=== PATIENT | male | born 1965 | race Caucasian/White ===

== ENCOUNTER 2018-07-13 02:13 | Inpatient (IN) | payer OTHER ==
[~2018-07-13] VITALS: Ht 172.7 cm; Wt 80.5 kg
[2018-07-13 02:16] VITALS: Ht 172.7 cm; Wt 80.5 kg
[2018-07-13] MEDS ORDERED: CLINDAMYCIN 900 MG/D5W (PMX) 50 ML IVPB STA (02:47)
[2018-07-13] MEDS ORDERED: PIPER-TAZO 3.375 GM IV (PMX) 100 ML IVPB STA (02:47)
[2018-07-13] MEDS ORDERED: SODIUM CHLORIDE 0.9% 1L BAG IV* STA (02:47)
[2018-07-13] MEDS ORDERED: ACETAMINOPHEN 500 MG TAB PO STA (02:47)
[2018-07-13] MEDS ORDERED: VANCOMYCIN 1 GM (PMX) 250 ML IVPB STA (02:47)
--- NOTE | 2018-07-13 03:08 | ERD ---
ER Documentation Chief Complaint Chief Complaint RIGHT LEG; POSS CELLULITIS HPI 52-year-old male history of IV drug abuse who presents with injection site cellulitis of the right leg. The patient describes erythema warmth and tender ness and moderate to severe pain to the right leg with associated swelling for several days. Generalized malaise is noted. No significant fevers. ROS All systems reviewed and are negative except as per history of present illness. PMhx/Soc Medical and Surgical Hx: pt denies Medical Hx History of Surgery: Yes (R HIP SX) Anesthesia Reaction: No Hx Alcohol Use: No Hx Substance Use: Yes (HEROIN, METHADONE) Hx Tobacco Use: Yes Smoking Status: Current every day smoker FmHx Family History: No diabetes Physical Exam Vitals Vital Signs Date Temp Pulse Resp B/P (MAP) Pulse Ox O2 O2 Flow FiO2 Time Delivery Rate 07/13/18 97.6 91 18 129/79 96 Room Air 02:43 (96) 07/13/18 97.6 103 19 125/73 100 02:16 (90) Physical Exam General: Well developed, well nourished, no acute distress Head: Normocephalic, atraumatic. Eyes: Pupils equally reactive, EOM intact ENT: Moist mucous membranes Neck: Supple, no lymphadenopathy Respiratory: Lungs clear bilaterally, no distress Cardiovascular: RRR, no murmurs, rubs, or gallops Abdominal: Soft, non-tender, non-distended, no peritoneal signs : Deferred MSK: Significant edema swelling and acute on chronic wounds noted to the right leg. There is associated erythema warmth and tenderness with associated streaking erythema to the right lower extremity. No focal abscess noted. Neurologic: Alert and oriented, moving all extremities, normal speech, no focal weakness, no cerebellar signs Skin: No rash Psych: Normal mood Result Diagram: 07/13/18 0315 07/13/18 0315 Results 24 hrs Laboratory Tests Test 07/13/18 03:15 07/13/18 03:59 White Blood Count 4.3 10^3/ul Red Blood Count 4.34 10^6/ul Hemoglobin 12.1 g/dl Hematocrit 35.7 % Mean Corpuscular Volume 82.3 fl Mean Corpuscular Hemoglobin 27.9 pg Mean Corpuscular Hemoglobin Concent 33.9 g/dl Red Cell Distribution Width 13.7 % Platelet Count 173 10^3/UL Mean Platelet Volume 9.2 fl Immature Granulocytes % 0.200 % Neutrophils % 58.2 % Lymphocytes % 23.1 % Monocytes % 12.4 % Eosinophils % 5.6 % Basophils % 0.5 % Nucleated Red Blood Cells % 0.0 /100WBC Immature Granulocytes # 0.010 10^3/ul Neutrophils # 2.5 10^3/ul Lymphocytes # 1.0 10^3/ul Monocytes # 0.5 10^3/ul Eosinophils # 0.2 10^3/ul Basophils # 0.0 10^3/ul Nucleated Red Blood Cells # 0.0 10^3/ul Prothrombin Time 12.4 Sec Prothrombin Time Ratio 1.0 INR International Normalized Ratio 0.91 Activated Partial Thromboplast Time 31.8 Sec Sodium Level 141 mmol/L Potassium Level 3.5 mmol/L Chloride Level 100 mmol/L Carbon Dioxide Level 33 mmol/L Anion Gap 8 Blood Urea Nitrogen 11 mg/dl Creatinine 0.87 mg/dl Est Glomerular Filtrat Rate mL/min > 60 mL/min Glucose Level 142 mg/dl Calcium Level 9.2 mg/dl Creatine Kinase 97 IU/L C-Reactive Protein 2.1 mg/dl POC Venous Lactate 2.2 mmol/L Current Medications Medications Dose Sig/Evette Start Time Status Last (Trade) Ordered Route PRN Stop Time Admin Dose Reason Admin Sodium 2,390 ml BOLUS OVER 2 07/13/18 DC 07/13/18 Chloride HOURS STAT 02:47 03:40 (NS) IV* 07/13/18 02:50 Vancomycin 250 ml @ ONCE STAT 07/13/18 DC HCl 125 mls/hr IVPB 02:47 07/13/18 04:46 Clindamycin 50 ml @ 50 ONCE STAT 07/13/18 DC 07/13/18 HCl/ mls/hr IVPB 02:47 04:22 Dextrose 07/13/18 03:46 Piperacillin 100 ml @ ONCE STAT 07/13/18 DC 07/13/18 Sod/ 200 mls/hr IVPB 02:47 03:46 Tazobactam 07/13/18 03:16 Sod 1,000 mg ONCE STAT 07/13/18 DC 07/13/18 Acetaminophen PO 02:47 03:46 (Tylenol 07/13/18 02:50 Tab) Ondansetron 4 mg BRIDGE ORDER 07/13/18 HCl (Zofran PRN IV 04:30 Inj) NAUSEA AND/OR 07/14/18 04:29 VOMITING 650 mg ER BRIDGE 07/13/18 Acetaminophen PRN PO MILD 04:30 (Tylenol PAIN(1-3)OR 07/14/18 04:29 Tab) ELEVATED TEMP Procedures/MDM EKG, MONITORS, & DIAGNOSTIC IMAGING: Duplex of the right lower extremity: IMPRESSION: No sonographic evidence for deep venous thrombosis in the visualized lower extremity venous structures. RPTAT: HAP X-ray right lower extremity: IMPRESSION: No radiographic evidence for osteomyelitis. RPTAT: HAP LAB INTERPRETATION: * WBC slightly low * LA 2.2 * CRP elevated MEDICAL DECISION MAKING: Clinical exam consistent with cellulitis secondary to IV, IM drug abuse. No evidence of cellulitis or necrotizing fasciitis though the patient does have risk of more complicated infection. Given the localized cellulitis inpatient hospitalization appropriate. No evidence of abscess at this time that requires incision and drainage. Sepsis screening will be initiated. Broad-spectrum antibiotics to be provided. ER COURSE: * 30 cc/kg bolus of saline. Blood cultures prior to vancomycin, Zosyn, clindamycin. * Nonnarcotic pain medication provided. * The patient's lactic acid is elevated. The patient technically meets criteria for Sirs and sepsis. No evidence of severe sepsis or endorgan dysfunction. Blood pressure remained stable. CONSULTATION: None DISPOSITION PLAN: Medical surgical admission Accepting care team and consultations: I discussed the current laboratory data, diagnostic imaging and emergency care provided. Admitting team: Dr. Turpin sepsis Documentation: Patient's infectious symptoms have not stabilized and the patient is at risk of rapid decompensation. The patient will be admitted for careful hydration, antibiotic therapy, and infectious source control. SEVERE SEPSIS CRITERIA: Infectious source: Right leg cellulitis End organ damage indicated by: Lactate > 2.0 mmol/L SEPSIS MANAGEMENT Time of recognition of sepsis: Upon MD assessment. Time of recognition of severe sepsis: 3:59 AM Time of recognition of septic shock: No septic shock at this time. 3 HOUR BUNDLE Blood cultures x 2 before broad-spectrum antibiotics: Yes 30 ml/kg NS bolus completed Initial lactate 2.2 Repeat lactate pending repeat SEPTIC SHOCK ASSESSMENT: No lactic acid > 4.0 No persistent hypotension (SBP < 90 or 40 mmHg drop, MAP < 65) despite 30 mL/kg IV fluid bolus VOLUME REASSESSMENT FOR SEPTIC SHOCK: The patient does not meet criteria for septic shock in the emergency department at this time PERSISTENT HYPOTENSION TREATMENT: Comfort care no Central line not Required Vasopressor started not required I considered further perfusion assessment with CVP measurement, SCVO2, bedside ultrasound volume assessment, passive leg raise, trial of further fluid bolus. And proceeded with 30 ml/kg fluid bolus of NSS, broad spectrum antibiotics, and admission. CRITICAL CARE Critical care time 35 minutes Emergent fluid management while maintaining close respiratory support. Provision of immediate and broad-spectrum antibiotic therapy. Simultaneous assessment for possible sources in order to direct targeted therapy. Consideration for invasive and chemical support to prevent cardiopulmonary collapse. Critical care time is independent of procedures performed. Admitting team indication: Insurance directed Departure Diagnosis: Primary Impression: Cellulitis of leg, right Additional Impression: IV drug abuse Condition: Stable MELBA SENIOR MD Jul 13, 2018 03:08
[2018-07-13] MEDS ORDERED: ACETAMINOPHEN 325 MG TAB PO PRN (04:30)
[2018-07-13] MEDS ORDERED: ONDANSETRON 4 MG INJ IV PRN ×2 (04:30→06:30)
[2018-07-13 04:50] VITALS: BP 137/85; PULSE 79; RESP 17
--- NOTE | 2018-07-13 05:07 | NUR ---
received patient from ER. pt immediately went to the restroom upon arrival. unable to do the admission interview and assessments at this time. Addendum: 07/13/18 at 0551 by MIN FERNANDEZ RN skin assessment done with photo taken. inventory done, pt has a wallet with 100 dollar baez. explained hospital is not liable for any loss of valuables, offered to have the baez surrendered to security, patient wants to keep it. noted. Addendum: 07/13/18 at 0647 by MIN FERNANDEZ RN patient was oriented with the used of call light, phone and hourly rounding. verbalized understanding. pt complqained of heartburn, sent message to dr tapia, awaiting for additional orders.
[2018-07-13] MEDS ORDERED: NACL 0.9% 3 ML SYG IV SCH (06:30)
--- NOTE | 2018-07-13 06:32 | HP ---
Date/Time of Note Date/Time of Note DATE: 07/13/18 TIME: 06:29 Assessment/Plan VTE Prophylaxis Pharmacological prophylaxis: heparin Lines/Catheters IV Catheter Type (from Nrs): Mid Line Assessment/Plan Hospital Course 52-year-old male with history of IV drug abuse who presented with right lower extremity cellulitis secondary to injecting heroin on his calf 2 weeks ago PLAN IV antibiotic Wound care and ID consult He will be placed on methadone Result Diagram: 07/13/18 0315 07/13/18 0315 Results 24hrs Laboratory Tests Test 07/13/18 03:15 07/13/18 03:59 White Blood Count 4.3 L Red Blood Count 4.34 L Hemoglobin 12.1 L Hematocrit 35.7 L Mean Corpuscular Volume 82.3 Mean Corpuscular Hemoglobin 27.9 L Mean Corpuscular Hemoglobin Concent 33.9 Red Cell Distribution Width 13.7 Platelet Count 173 Mean Platelet Volume 9.2 Immature Granulocytes % 0.200 Neutrophils % 58.2 Lymphocytes % 23.1 Monocytes % 12.4 H Eosinophils % 5.6 Basophils % 0.5 Nucleated Red Blood Cells % 0.0 Immature Granulocytes # 0.010 Neutrophils # 2.5 Lymphocytes # 1.0 Monocytes # 0.5 Eosinophils # 0.2 Basophils # 0.0 Nucleated Red Blood Cells # 0.0 Erythrocyte Sedimentation Rate 15 Prothrombin Time 12.4 Prothrombin Time Ratio 1.0 INR International Normalized Ratio 0.91 Activated Partial Thromboplast Time 31.8 Sodium Level 141 Potassium Level 3.5 Chloride Level 100 Carbon Dioxide Level 33 H Anion Gap 8 Blood Urea Nitrogen 11 Creatinine 0.87 Est Glomerular Filtrat Rate mL/min > 60 Glucose Level 142 Calcium Level 9.2 Creatine Kinase 97 C-Reactive Protein 2.1 H POC Venous Lactate 2.2 *H HPI/ROS Admit Date/Time Admit Date/Time Jul 13, 2018 at 04:25 Hx of Present Illness This is a 52-year-old male with a history of IV drug use who presents the ER complaining of right lower extremity redness and swelling. He said he has been shooting heroin in that leg and for the past 2 weeks leg has been progressively getting more swollen and erythematous and tender. When he presented to ER, he was afebrile. WBC 4000. Right lower extremity x-ray and venous study were negative. PMH/Family/Social Past Medical History Medical History: other (See HPI) Medications Current Medications Ondansetron HCl (Zofran Inj) 4 mg BRIDGE ORDER PRN IV NAUSEA AND/OR VOMITING; Start 07/13/18 at 04:30; Stop 07/14/18 at 04:29 Acetaminophen (Tylenol Tab) 650 mg ER BRIDGE PRN PO MILD PAIN(1-3)OR ELEVATED TEMP; Start 07/13/18 at 04:30; Stop 07/14/18 at 04:29 IV Flush (NS 3 ml) 3 ml PER PROTOCOL IV ; Start 07/13/18 at 06:30 Ondansetron HCl (Zofran Inj) 4 mg Q6H PRN IV NAUSEA AND/OR VOMITING; Start 07/13/18 at 06:30 Acetaminophen (Tylenol Tab) 650 mg Q6H PRN PO PAIN LEVEL 1-3 OR FEVER; Start 07/13/18 at 06:30 Heparin Sodium (Porcine) (Heparin (5000 Units/1ml)) 5,000 unit Q12 SC ; Start 07/13/18 at 09:00 Methadone HCl (Methadone) 20 mg DAILY PO ; Start 07/13/18 at 09:00 Vancomycin HCl (Vanco Iv Per Pharmacy) VANCOMYCIN PER PHARMACY PER PROTOCOL XX ; Start 07/13/18 at 07:00 Cefepime HCl 50 ml @ 100 mls/hr Q12 IVPB ; Start 07/13/18 at 09:00 Coded Allergies: No Known Allergies (Verified Allergy, Unknown, 07/13/18) Past Surgical History Past Surgical Hx: other (See HPI) Family History Significant Family History: no pertinent family hx Social History Smoking Status: Current every day smoker Drug Use: heroin Exam/Review of Systems Vital Signs Vitals Vital Signs Date Temp Pulse Resp B/P (MAP) Pulse Ox O2 O2 Flow FiO2 Time Delivery Rate 07/13/18 97.6 87 18 119/70 96 Room Air 04:53 (86) Exam Constitutional: alert, oriented, well developed Head: normocephalic, atraumatic Eyes: EOMI, PERRL Respiratory: clear to auscultation, normal air movement Cardiovascular: regular rate and rhythm, nl pulses Gastrointestinal: soft, non-tender Extremities: other (Right calF swelling and erythema) NEO JOHNSON MD Jul 13, 2018 06:32
[2018-07-13] MEDS ORDERED: VANCOMYCIN IV PER PHARMACY XX SCH (07:00)
[2018-07-13 08:26] VITALS: BP 112/75; PULSE 71; RESP 17
[2018-07-13] MEDS ORDERED: METHADONE 10 MG TAB PO SCH (09:00)
[2018-07-13] MEDS: CEFEPIME 1GM/50 ML (PMX) 50 ML IVPB SCH ×2 (09:43→21:34)
[2018-07-13] MEDS: HEPARIN 5,000 UNIT/1 ML VIAL SC SCH ×2 (09:46→21:37)
--- NOTE | 2018-07-13 11:19 | NUR ---
VANCOMYCIN PER RX Problem List: RLE cellulitis, H/O IV drug abuse Current ABXs: Cefepime, Vancomycin 52 yom 5ft8in, 80.5 kg with SCr of 0.87. Comments/Plan: Received 1 gram of Vancomycin x 1 dose as load in ED. Will initiate at 1500 mg IV every 12 hour.
[2018-07-13] MEDS: VANCOMYCIN HCL 1.5 GM in SOD CHLORIDE 0.9% 250 ML IVPB SCH (13:48)
[2018-07-13] MEDS: CALCIUM CARBONATE 500 MG CHEW TAB PO SCH ×2 (13:48→18:05)
[2018-07-13 15:32] VITALS: BP 115/84; PULSE 65; RESP 17
[2018-07-13] MEDS ORDERED: METHADONE 10 MG TAB PO ONE (16:00)
--- NOTE | 2018-07-13 16:14 | NUR ---
SS Note: Consult SW received order to meet with pt regarding heroin abuse. The patient is a 52-year-old male with history of IV drug abuse who presented with right lower extremity cellulitis secondary to injecting heroin, per record. SW met with pt to complete psychosocial assessment and link pt to appropriate resources as needed. Pt awake, alert, and oriented x4. Pt calm and cooperative with SW. Pt reported feeling "well" asking for more methadone. Per pt, he takes 50mg of methadone daily and was given 20mg here. Pt reported actively using smoking or injecting heroin 3x/week. Pt stated he f/u at [facility] for his methadone. Pt denied past hx of substance abuse/rehab tx. Pt denied other illicit drug and etoh use. Pt reported he is single and has no children. Pt confirmed address on facesheet and stated he lives with his brother and sister. Pt verbally appointed his brother, Arnol Cowan , as surrogate decision maker/spokesperson. Pt stated he is unemployed and is a recipient of [employer]. Pt has [facility] [place] insurance and stated he has a PCP. Normally pt is independent with all ADL's and does not require DME to ambulate. SW introduced self and the role of the social human services assistants. SW provided supportive intervention and reassurance. SW advised quitting heroine, encouraged pt to get help, and provided outpatient/residential tx resources. Pt was provided with heroin abuse e-sheets for additional education regarding heroin addiction and tx. Pt receptive to resources. RN getting order from attending for 30mg of methadone. No other needs identified at this time. SW remains available for f/u as needed.
--- NOTE | 2018-07-13 17:53 | PN ---
Date/Time of Note Date/Time of Note DATE: 07/13/18 TIME: 17:52 Assessment/Plan VTE Prophylaxis Risk score (from Ns)>0 risk: 3 SCD applied (from Ns): Yes Pharmacological prophylaxis: heparin Lines/Catheters IV [facility] Mid Line Assessment/Plan Hospital Course SUBJECTIVE: Remains afebrile. OBJECTIVE: Physical Exam General: Adequately build 52 year-old male lying in bed in no apparent distress. HEENT: Normocephalic, atraumatic. Eyes: Anicteric sclerae, conjunctivae clear. ENT: Nasal septum midline, oral mucosa moist. Neck supple, no JVD noticed. Respiratory: Bilaterally clear breath sounds. No use of accessory muscles of respiration. No adventitious breath sounds. Cardiovascular: S1, S2 heard. Regular rate and rhythm. Abdomen: Soft, nontender, and nondistended. Bowel sounds positive in all 4 quadrants. Genitourinary: Deferred. Extremities: No cyanosis, no clubbing. Right pedal edema. Right lower extremity erythema and edema with warmth (needle tracks noted). Neurologic: Cranial nerves II through XII grossly intact. The patient is awake, alert, and oriented. Labs & Vitals per chart ASSESSMENT & PLAN 52-year-old male with history of IV drug use, who came to the emergency room with chief complaint of right lower extremity redness and swelling that started after injecting heroin into his right lower extremity. 1. Right lower extremity cellulitis. -Right lower extremity venous Doppler study negative for any DVT. -Right lower extremity x-ray negative for any osteomyelitis. -Continue antimicrobials including coverage for MRSA. 2. Normocytic anemia. -Monitor H&H closely. 3. IV drug abuse. -Cessation advised. -Social work consult. -On methadone. 4. Fluids, electrolytes, and nutrition. -Regular diet. 5. DVT prophylaxis. -Subcutaneous heparin. 6. Plan. -Continue antimicrobials -Await clinical improvement. The patient was seen in collaboration with Dr. Llamas. Result Diagram: 07/13/1831407/13/18314 Results 24hrs Laboratory Tests Test 07/13/18 03:15 07/13/18 03:59 07/13/18 05:27 07/13/18 11:49 White Blood Count 4.3 L Red Blood Count 4.34 L Hemoglobin 12.1 L Hematocrit 35.7 L Mean Corpuscular 82.3 Volume Mean Corpuscular 27.9 L Hemoglobin Mean Corpuscular 33.9 Hemoglobin Concent Red Cell 13.7 Distribution Width Platelet Count 173 Mean Platelet Volume 9.2 Immature 0.200 Granulocytes % Neutrophils % 58.2 Lymphocytes % 23.1 Monocytes % 12.4 H Eosinophils % 5.6 Basophils % 0.5 Nucleated Red Blood 0.0 Cells % Immature 0.010 Granulocytes # Neutrophils # 2.5 Lymphocytes # 1.0 Monocytes # 0.5 Eosinophils # 0.2 Basophils # 0.0 Nucleated Red Blood 0.0 Cells # Erythrocyte 15 Sedimentation Rate Prothrombin Time 12.4 Prothrombin Time 1.0 Ratio INR International 0.91 Normalized Ratio Activated 31.8 Partial Thromboplast Time Sodium Level 141 Potassium Level 3.5 Chloride Level 100 Carbon Dioxide Level 33 H Anion Gap 8 Blood Urea Nitrogen 11 Creatinine 0.87 Est Glomerular > 60 Filtrat Rate mL/min Glucose Level 142 Calcium Level 9.2 Creatine Kinase 97 C-Reactive Protein 2.1 H POC Venous Lactate 2.2 *H Lactic Acid Level 1.6 Urine Color YELLOW Urine Clarity CLEAR Urine pH 7.0 Urine Specific 1.010 [place] Urine Ketones NEGATIVE Urine Nitrite NEGATIVE Urine Bilirubin NEGATIVE Urine Urobilinogen 1+ H Urine Leukocyte NEGATIVE Esterase Urine Hemoglobin NEGATIVE Urine Glucose NEGATIVE Urine Total Protein NEGATIVE Exam/Review of Systems Vital Signs Vitals Vital Signs Date Temp Pulse Resp B/P (MAP) Pulse Ox O2 O2 Flow FiO2 Time Delivery Rate 07/13/18 98.0 65 17 115/84 98 Room Air 15:32 (94) Intake and Output 07/12/18 07/12/18 07/13/18 1515:00 23:00 07:00 IntakeIntake Total 50 ml BalanceBalance 50 ml Medications Medications Current Medications IV Flush (NS 3 ml) 3 ml PER PROTOCOL IV ; Start 07/13/18 at 06:30 Ondansetron HCl (Zofran Inj) 4 mg Q6H PRN IV NAUSEA AND/OR VOMITING; Start 07/13/18 at 06:30 Acetaminophen (Tylenol Tab) 650 mg Q6H PRN PO PAIN LEVEL 1-3 OR FEVER; Start 07/13/18 at 06:30 Heparin Sodium (Porcine) (Heparin (5000 Units/1ml)) 5,000 unit Q12 SC Last administered on 07/13/18at 09:46; Admin Dose 5,000 UNIT; Start 07/13/18 at 09:00 Vancomycin HCl (Vanco Iv Per Pharmacy) VANCOMYCIN PER PHARMACY PER PROTOCOL XX ; Start 07/13/18 at 07:00 Cefepime HCl 50 ml @ 100 mls/hr Q12 IVPB Last administered on 07/13/18at 09:43; Admin Dose 100 MLS/HR; Start 07/13/18 at 09:00 Vancomycin HCl 1.5 gm/Sodium Chloride 250 ml @ 83.333 mls/ hr Q12H IVPB Last administered on 07/13/18at 13:48; Admin Dose 83.333 MLS/HR; Start 07/13/18 at 13:00 Calcium Carbonate (Tums) 500 mg PC MEALS PO Last administered on 07/13/18at 13:48; Admin Dose 500 MG; Start 07/13/18 at 13:00 Methadone HCl (Methadone) 50 mg DAILY PO ; Start 07/14/18 at 09:00 ESTEPHANIA VALENCIA NP Jul 13, 2018 17:53
--- NOTE | 2018-07-13 19:56 | CONS ---
DATE OF ADMISSION: 07/13/2018 DATE OF CONSULTATION: 07/13/2018 TYPE OF CONSULTATION: Infectious Disease. REASON FOR CONSULTATION: Antibiotic management. HISTORY OF PRESENT ILLNESS: Erick Cowan is a 52-year-old male who comes in with history of IV chandana g abuse and right leg cellulitis. He presents with injection site cellulitis of the right leg. The area is red, warm and tender, moderate to severe pain with associated swelling of several days, gener al malaise is noted. No significant fever. PAST SURGICAL HISTORY: Status post right hip surgery. FAMILY HISTORY: Noncontributory. SOCIAL HISTORY: He abuses substances such as heroin and methadone. He is an everyday smoker. He do es not drink. ALLERGIES: NONE TO PENICILLIN, SULFA OR FOODS. MEDICATIONS: Per chart. REVIEW OF SYSTEMS: As per HPI. PHYSICAL EXAMINATION: GENERAL: The patient is a well-developed, well-nourished male who is awake, responsive, in no acute distress. VITAL SIGNS: Stable. He is afebrile. SKIN: Without generalized rash. HEENT: Within normal limits. NECK: Supple. LYMPH NODES: None palpable. CHEST: Decreased breath sounds at the bases. HEART: Without murmur or gallop. ABDOMEN: Soft, nontender, without organosplenomegaly or masses. EXTREMITIES: Significant edema and swelling. Acute on chronic wounds noted to the right leg associa tracy with erythema, warmth and tenderness. There is some streaking up from the right lower extremity, no focal abscesses were noted. RECTAL AND GENITAL: Deferred. NEUROLOGIC: No focal neurological abnormality. ANCILLARY LABORATORY DATA: White count of 4.3, H and H of 12.5 and 35.7, platelet count 173,000. BU N and creatinine 11/0.87. IMPRESSION AND PLAN: The patient has 58% polys, was started on vancomycin, clindamycin and Zosyn to cover cellulitis and gas gangrene if present. X-ray of right lower extremity shows no evidence for o steomyelitis. Clinical exam is consistent with cellulitis secondary to IV drug abuse. No evidence f or necrotizing fasciitis. No evidence of abscess at this time. We will continue him on current ther apy for right lower extremity cellulitis. I will dictate my findings to the hospitalist. Dictated By: MANDEEP OWENS MD, JD/MARLENE Conf#: [id number] DID#: [id number] CC: NEO JOHNSON MD;*[facility]*
[2018-07-13 20:17] VITALS: BP 141/77; PULSE 79; RESP 18
[2018-07-14] MEDS: VANCOMYCIN HCL 1.5 GM in SOD CHLORIDE 0.9% 250 ML IVPB SCH ×2 (01:44→12:59)
[2018-07-14 02:12] VITALS: BP 113/63; PULSE 85; RESP 20
--- NOTE | 2018-07-14 05:43 | PN ---
Date/Time of Note Date/Time of Note DATE: 07/14/18 TIME: 05:43 Assessment/Plan VTE Prophylaxis Risk score (from Ns)>0 risk: 2 SCD applied (from Ns): Yes Pharmacological prophylaxis: heparin Lines/Catheters IV Catheter Type (from [facility] Mid Line Assessment/Plan Hospital Course SUBJECTIVE: Remains afebrile. OBJECTIVE: Physical Exam General: Adequately build 52 year-old male lying in bed in no apparent distress. HEENT: Normocephalic, atraumatic. Eyes: Anicteric sclerae, conjunctivae clear. ENT: Nasal septum midline, oral mucosa moist. Neck supple, no JVD noticed. Respiratory: Bilaterally clear breath sounds. No use of accessory muscles of respiration. No adventitious breath sounds. Cardiovascular: S1, S2 heard. Regular rate and rhythm. Abdomen: Soft, nontender, and nondistended. Bowel sounds positive in all 4 quadrants. Genitourinary: Deferred. Extremities: No cyanosis, no clubbing. Right pedal edema. Right lower extremity erythema and edema with warmth (needle tracks noted). Neurologic: Cranial nerves II through XII grossly intact. The patient is awake, alert, and oriented. Labs & Vitals per chart ASSESSMENT & PLAN 52-year-old male with history of IV drug use, who came to the emergency room with chief complaint of right lower extremity redness and swelling that started after injecting heroin into his right lower extremity. 1. Right lower extremity cellulitis. -Right lower extremity venous Doppler study negative for any DVT. -Right lower extremity x-ray negative for any osteomyelitis. -Continue antimicrobials including coverage for MRSA as per ID. 2. Normocytic anemia. -Monitor H&H closely. 3. IV drug abuse. -Cessation advised. -Social work consult. -On methadone. 4. Fluids, electrolytes, and nutrition. -Regular diet. 5. DVT prophylaxis. -Subcutaneous heparin. 6. Plan. -Continue antimicrobials -Await clinical improvement. The patient was seen in collaboration with Dr. Llamas. Result Diagram: 07/13/185 07/13/18 0315 Results 24hrs Laboratory Tests Test 07/13/18 11:49 Urine Color YELLOW Urine Clarity CLEAR Urine pH 7.0 Urine Specific [place] 1.010 Urine Ketones NEGATIVE Urine Nitrite NEGATIVE Urine Bilirubin NEGATIVE Urine Urobilinogen 1+ H Urine Leukocyte Esterase NEGATIVE Urine Hemoglobin NEGATIVE Urine Glucose NEGATIVE Urine Total Protein NEGATIVE Exam/Review of Systems Vital Signs Vitals Vital Signs Date Temp Pulse Resp B/P (MAP) Pulse Ox O2 O2 Flow FiO2 Time Delivery Rate 07/14/18 98.3 85 20 113/63 98 02:12 (80) 07/13/18 Room Air 20:17 Intake and Output 07/13/18 07/13/18 07/14/18 1515:00 23:00 07:00 IntakeIntake Total 300 ml 800 ml 1500 ml OutputOutput Total 375 ml 475 ml 500 ml BalanceBalance -75 ml 325 ml 1000 ml Medications Medications Current Medications IV Flush (NS 3 ml) 3 ml PER PROTOCOL IV ; Start 07/13/18 at 06:30 Ondansetron HCl (Zofran Inj) 4 mg Q6H PRN IV NAUSEA AND/OR VOMITING; Start 07/13/18 at 06:30 Acetaminophen (Tylenol Tab) 650 mg Q6H PRN PO PAIN LEVEL 1-3 OR FEVER; Start 07/13/18 at 06:30 Heparin Sodium (Porcine) (Heparin (5000 Units/1ml)) 5,000 unit Q12 SC Last administered on 07/13/18at 21:37; Admin Dose 5,000 UNIT; Start 07/13/18 at 09:00 Vancomycin HCl (Vanco Iv Per Pharmacy) VANCOMYCIN PER PHARMACY PER PROTOCOL XX ; Start 07/13/18 at 07:00 Cefepime HCl 50 ml @ 100 mls/hr Q12 IVPB Last administered on 07/13/18at 21:34; Admin Dose 100 MLS/HR; Start 07/13/18 at 09:00 Vancomycin HCl 1.5 gm/Sodium Chloride 250 ml @ 83.333 mls/ hr Q12H IVPB Last administered on 07/14/18at 01:44; Admin Dose 83.333 MLS/HR; Start 07/13/18 at 13:00 Calcium Carbonate (Tums) 500 mg PC MEALS PO Last administered on 07/13/18at 18:05; Admin Dose 500 MG; Start 07/13/18 at 13:00 Methadone HCl (Methadone) 50 mg DAILY PO ; Start 07/14/18 at 09:00 ESTEPHANIA VALENCIA NP Jul 14, 2018 05:43
--- NOTE | 2018-07-14 06:56 | NUR ---
no acute changes overnight, patient remained afebrile with VSS. able to sleep through the night. denied pain when asked. fall precautions observed with hourly rounding done. needs attended to and anticipated, call light within reach.
[2018-07-14 08:30] VITALS: BP 122/74; PULSE 80; RESP 18
[2018-07-14] MEDS: METHADONE 10 MG TAB PO SCH (08:37)
[2018-07-14] MEDS: CALCIUM CARBONATE 500 MG CHEW TAB PO SCH ×3 (08:38→18:18)
[2018-07-14] MEDS: CEFEPIME 1GM/50 ML (PMX) 50 ML IVPB SCH (08:38)
[2018-07-14] MEDS: HEPARIN 5,000 UNIT/1 ML VIAL SC SCH ×2 (08:41→20:25)
[2018-07-14] MEDS: ACETAMINOPHEN 325 MG TAB PO PRN ×2 (12:58→20:22)
[2018-07-14 14:00] VITALS: BP 118/62; PULSE 76; RESP 18
--- NOTE | 2018-07-14 15:02 | CONS ---
Assessment/Plan Assessment/Plan Hospital Course No events overnight patient is alert feels good denies pain no fevers WBC 6.2 no shift no bands BUN 9 creatinine 0.95 Microbiology: Blood and urine cultures negative Antimicrobials: Vancomycin cefepime Physical examination: Well-developed middle-aged man who is alert in no distress. Head atraumatic normocephalic neck is supple chest rise symmetrical breath sounds clear heart: S1-S2. Abdomen soft bowel sounds present. Extremities without cyanosis. Right foot slightly edematous with resolving erythema Assessment: 1. Right foot cellulitis, resolving 2. IV drug abuse Plan: Patient is doing better, change cefepime to oral Levaquin, continue Vanco and anticipate discharge on oral Bactrim or doxycycline Result Diagram: 07/14/18 0630 07/14/18 0630 Results 24hrs Laboratory Tests Test 07/14/18 06:30 White Blood Count 6.2 # Red Blood Count 4.95 Hemoglobin 13.8 L Hematocrit 40.3 L Mean Corpuscular Volume 81.4 L Mean Corpuscular Hemoglobin 27.9 L Mean Corpuscular Hemoglobin Concent 34.2 Red Cell Distribution Width 13.3 Platelet Count 189 Mean Platelet Volume 9.6 Immature Granulocytes % 0.200 Neutrophils % 57.7 Lymphocytes % 25.4 Monocytes % 12.4 H Eosinophils % 4.0 Basophils % 0.3 Nucleated Red Blood Cells % 0.0 Immature Granulocytes # 0.010 Neutrophils # 3.6 Lymphocytes # 1.6 Monocytes # 0.8 Eosinophils # 0.3 Basophils # 0.0 Nucleated Red Blood Cells # 0.0 Sodium Level 138 Potassium Level 3.7 Chloride Level 102 Carbon Dioxide Level 27 Anion Gap 9 Blood Urea Nitrogen 9 Creatinine 0.95 Est Glomerular Filtrat Rate mL/min > 60 Glucose Level 87 # Hemoglobin A1c 5.0 Calcium Level 9.4 Phosphorus Level 3.6 Magnesium Level 2.0 Total Bilirubin 0.4 Direct Bilirubin 0.00 Indirect Bilirubin 0.4 Aspartate Amino Transf (AST/SGOT) 32 Alanine Aminotransferase (ALT/SGPT) 32 Alkaline Phosphatase 100 Total Protein 7.4 Albumin 4.1 Globulin 3.30 H Albumin/Globulin Ratio 1.24 Triglycerides Level 113 Cholesterol Level 158 LDL Cholesterol, Calculated 87 HDL Cholesterol 48 Cholesterol/HDL Ratio 3.2 Prostate Specific Antigen 0.5 Consultation Date/Type/Reason Admit Date/Time Jul 13, 2018 at 04:25 Initial Consult Date Type of Consult id Exam/Review of Systems Vital Signs Vitals Vital Signs Date Temp Pulse Resp B/P (MAP) Pulse Ox O2 O2 Flow FiO2 Time Delivery Rate 07/14/18 98.6 80 18 122/74 96 08:30 (90) 07/13/18 Room Air 20:17 Intake and Output 07/13/18 07/13/18 07/14/18 1515:00 23:00 07:00 IntakeIntake Total 300 ml 800 ml 1750 ml OutputOutput Total 375 ml 475 ml 500 ml BalanceBalance -75 ml 325 ml 1250 ml Medications Medications Current Medications IV Flush (NS 3 ml) 3 ml PER PROTOCOL IV ; Start 07/13/18 at 06:30 Ondansetron HCl (Zofran Inj) 4 mg Q6H PRN IV NAUSEA AND/OR VOMITING; Start 06/24 07/11 at 06:30 Acetaminophen (Tylenol Tab) 650 mg Q6H PRN PO PAIN LEVEL 1-3 OR FEVER Last administered on 07/14/18at 12:58; Admin Dose 650 MG; Start 07/13/18 at 06:30 Heparin Sodium (Porcine) (Heparin (5000 Units/1ml)) 5,000 unit Q12 SC Last administered on 07/14/18at 08:41; Admin Dose 5,000 UNIT; Start 07/13/18 at 09:00 Vancomycin HCl (Vanco Iv Per Pharmacy) VANCOMYCIN PER PHARMACY PER PROTOCOL XX ; Start 07/13/18 at 07:00 Cefepime HCl 50 ml @ 100 mls/hr Q12 IVPB Last administered on 07/14/18at 08:38; Admin Dose 100 MLS/HR; Start 07/13/18 at 09:00 Vancomycin HCl 1.5 gm/Sodium Chloride 250 ml @ 83.333 mls/ hr Q12H IVPB Last administered on 07/14/18at 12:59; Admin Dose 83.333 MLS/HR; Start 07/13/18 at 13:00 Calcium Carbonate (Tums) 500 mg PC MEALS PO Last administered on 07/14/18at 12:58; Admin Dose 500 MG; Start 07/13/18 at 13:00 Methadone HCl (Methadone) 50 mg DAILY PO Last administered on 07/14/18at 08:37; Admin Dose 50 MG; Start 07/14/18 at 09:00 Miscellaneous Information (*Rx Drug Level Order Reminder*) 1 ONCE ONCE XX ; Start 07/15/18 at 00:00; Stop 07/15/18 at 00:01 Date/Time of Note Date/Time of Note DATE: 07/14/18 TIME: 15:02 HIRAM TRIANA NP Jul 14, 2018 15:02
--- NOTE | 2018-07-14 18:57 | NUR ---
All needs met.no acute events.gave pain medication as reqested.call light within reach.bed alarm on.he is resting comfortably in bed.
[2018-07-14 19:50] VITALS: BP 130/75; PULSE 83; RESP 20
[2018-07-15] MEDS: VANCOMYCIN HCL 1.5 GM in SOD CHLORIDE 0.9% 250 ML IVPB SCH ×2 (00:59→13:45)
[2018-07-15 01:33] VITALS: BP 139/74; PULSE 70; RESP 18
--- NOTE | 2018-07-15 03:22 | NUR ---
VANCOMYCIN PER PHARMACY Problem List: RLE cellulitis, H/O IV drug abuse VANCO TROUGH = 15.4 CONTINUE WITH SAME THERAPY VANCO 1.5 GM Q12HRS Pharmacy to follow.
[2018-07-15] MEDS ORDERED: LEVOFLOXACIN 500 MG TAB ONE (04:05)
[2018-07-15] MEDS ORDERED: LEVOFLOXACIN 500 MG TAB PO SCH (06:00)
--- NOTE | 2018-07-15 06:16 | NUR ---
VS stable and pt afebrile. Pt c/o pain and medicated with PRN Tylenol. Midline patent. No acute changes or s/s of respiratory distress throughout shift. SCDs on and off on L leg. Hourly rounding provided. Bed at the lowest position with call light within reach. Will endorse to oncoming nurse.
[2018-07-15 07:30] VITALS: BP 123/63; PULSE 54; RESP 17
--- NOTE | 2018-07-15 08:29 | PN ---
Assessment/Plan VTE Prophylaxis Risk score (from Ns)>0 risk: 2 Assessment/Plan Result Diagram: 07/14/18 0630 07/14/18 0630 Results 24hrs Exam/Review of Systems Vital Signs Vitals Vital Signs Date Temp Pulse Resp B/P (MAP) Pulse Ox O2 O2 Flow FiO2 Time Delivery Rate 07/15/18 98.5 54 17 123/63 98 Room Air 07:30 (83) Intake and Output 07/14/18 07/14/18 07/15/18 1515:00 23:00 07:00 IntakeIntake Total 400 ml 730 ml 550 ml OutputOutput Total 200 ml 300 ml 600 ml BalanceBalance 200 ml 430 ml -50 ml Medications Medications Current Medications IV Flush (NS 3 ml) 3 ml PER PROTOCOL IV ; Start 07/13/18 at 06:30 Ondansetron HCl (Zofran Inj) 4 mg Q6H PRN IV NAUSEA AND/OR VOMITING; Start 07/13/18 at 06:30 Acetaminophen (Tylenol Tab) 650 mg Q6H PRN PO PAIN LEVEL 1-3 OR FEVER Last administered on 07/14/18at 20:22; Admin Dose 650 MG; Start 07/13/18 at 06:30 Heparin Sodium (Porcine) (Heparin (5000 Units/1ml)) 5,000 unit Q12 SC Last administered on 07/14/18at 20:25; Admin Dose 5,000 UNIT; Start 07/13/18 at 09:00 Vancomycin HCl (Vanco Iv Per Pharmacy) VANCOMYCIN PER PHARMACY PER PROTOCOL XX ; Start 07/13/18 at 07:00 Vancomycin HCl 1.5 gm/Sodium Chloride 250 ml @ 83.333 mls/ hr Q12H IVPB Last administered on 07/15/18at 00:59; Admin Dose 83.333 MLS/HR; Start 07/13/18 at 13:00 Calcium Carbonate (Tums) 500 mg PC MEALS PO Last administered on 07/14/18 18:18; Admin Dose 500 MG; Start 07/13/18 at 13:00 Methadone HCl (Methadone) 50 mg DAILY PO Last administered on 07/14/18 08:37; Admin Dose 50 MG; Start 07/14/18 at 09:00 Levofloxacin (Levaquin) 500 mg DAILY@06 PO Last administered on 07/15/18 05:27; Admin Dose 500 MG; Start 07/15/18 at 06:00 ESTEPHANIA VALENCIA NP Jul 15, 2018 08:29
[2018-07-15] MEDS: CALCIUM CARBONATE 500 MG CHEW TAB PO SCH ×2 (09:36→13:45)
[2018-07-15] MEDS: METHADONE 10 MG TAB PO SCH (09:36)
[2018-07-15] MEDS: HEPARIN 5,000 UNIT/1 ML VIAL SC SCH (09:37)
[2018-07-15] MEDS ORDERED: SULF1TAB31 PO (12:32)
--- NOTE | 2018-07-15 12:34 | PDOCDIS ---
Discharge Instructions CONDITION [id number] Patient Condition: [id number] Stable HOME CARE INSTRUCTIONS: [id number] Diet Instructions: [id number] Regular OTHER ORDERS: Other Orders: 1. Complete the course of antimicrobials. 2. Avoid using IV drugs. 3. Elevate right lower extremity while resting. 4. Take a regular diet as tolerated. 5. Resume activities as tolerated. 6. Please go to the nearest emergency room if you have worsening right lower extremity swelling, redness, persistent fevers, or any other unusual signs/symptoms. ESTEPHANIA VALENCIA NP Jul 15, 2018 12:34
--- NOTE | 2018-07-15 12:38 | DS ---
Date/Time of Note Date/Time of Note DATE: 07/15/18 TIME: 12:36 Discharge Summary Admission/Discharge Info Admit Date/Time Jul 13, 2018 at 04:25 Discharge Date/Time Discharge Diagnosis 1. Right lower extremity cellulitis. 2. Normocytic anemia. 3. IV drug abuse. Patient Condition: Stable Consults 1. Arya Thomason MD, Infectious Diseases. Procedures Right Lower Extremity Venous Doppler Study IMPRESSION: No sonographic evidence for deep venous thrombosis in the visualized lower extremity venous structures. X-Ray of Right Tibia and Fibula IMPRESSION: No radiographic evidence for osteomyelitis. Hx of Present Illness This is a 52-year-old male with history of IV drug use, who came to the emergency room with chief complaint of right lower extremity redness and swelling that started after injecting heroin into his right lower extremity. Hospital Course The patient was admitted to inpatient setting. The patient underwent a right lower extremity venous Doppler study that was negative for any DVT. The patient also underwent a right tibia/fibula X-ray that was negative for any radiographic evidence of osteomyelitis. The patient was on antimicrobials. Patient's cultures remained negative. The patient's cellulitis responded well to antimicrobial therapy. Patient is clinically stable to be discharged home on oral antibiotics. However, the patient needs to abstain from using IV heroine. The patient was evaluated by social worker psychiatric. The patient was maintained on methadone at the same dose as he was getting as outpatient. Patient was also complaining of some urinary hesitancy. The patient's urine studies including urine culture was negative. The patient's PSA was within normal limits. The patient had a stable hospital course. The patient is stable to be discharged h ome. Discharge Instructions 1. Complete the course of antimicrobials. 2. Avoid using IV drugs. 3. Elevate right lower extremity while resting. 4. Take a regular diet as tolerated. 5. Resume activities as tolerated. 6. Please go to the nearest emergency room if you have worsening right lower extremity swelling, redness, persistent fevers, or any other unusual signs/symptoms. The patient verbalized understanding of his discharge instructions. At this time I would like to thank all the consultants for seeing the patient and providing clinical recommendations. The patient was seen in collaboration with Dr. Llamas. Home Meds Active Scripts Sulfamethoxazole/Trimethoprim* (Bactrim Ds* Tablet) 1 Each Tablet, 1 TAB PO BID for 7 Days, #14 TAB Prov:ESTEPHANIA VALENCIA NP 07/15/18 Follow-up Plan The patient to follow-up with his primary care physician. Primary Care Provider [facility] Time spent on discharge: > 30 minutes Pending Labs Laboratory Tests Test 07/14/18 14:18 07/15/18 00:10 Iron Level 76 ug/dl (35-150) Total Iron Binding Capacity 348 ug/dl (241-421) Percent Iron Saturation 22 % SAT (22-52) Ferritin 37.8 ng/ml (11.1-264.0) Vancomycin Level Trough 15.4 ug/ml (10.0-20.0) ESTEPHANIA VALENCIA NP Jul 15, 2018 12:38
--- NOTE | 2018-07-15 13:00 | NUR ---
RN NOTES Seen by MARCEL Berry upon rounds with order for Discharge. Patient remained stable, not in any pain upon assessment. Patient prefers to be discharged after Vancomycin. [employer] aware. Will do final discharge later.
--- NOTE | 2018-07-15 13:43 | CONS ---
Assessment/Plan Assessment/Plan Hospital Course Alert, feels good, wants to go home, no fevers overnight Microbiology: Blood and urine cultures negative Antimicrobials: Vancomycin Levaquin Physical examination: Well-developed middle-aged man who is alert in no distress. Head atraumatic normocephalic neck is supple chest rise symmetrical breath sounds clear heart: S1-S2. Abdomen soft bowel sounds present. Extremities without cyanosis. Right foot slightly edematous with resolving erythema Assessment: 1. Right foot cellulitis, resolving 2. IV drug abuse Plan: Stable, right foot looks much better, okay to discharge on oral Bactrim Result Diagram: 07/14/18 0630 07/14/18 0630 Results 24hrs Laboratory Tests Test 07/14/18 14:18 07/15/18 00:10 Iron Level 76 Total Iron Binding Capacity 348 Percent Iron Saturation 22 Ferritin 37.8 Vancomycin Level Trough 15.4 Consultation Date/Type/Reason Admit Date/Time Jul 13, 2018 at 04:25 Initial Consult Date Type of Consult id Exam/Review of Systems Vital Signs Vitals Vital Signs Date Temp Pulse Resp B/P (MAP) Pulse Ox O2 O2 Flow FiO2 Time Delivery Rate 07/15/18 98.5 54 17 123/63 98 Room Air 07:30 (83) Intake and Output 07/14/18 07/14/18 07/15/18 1515:00 23:00 07:00 IntakeIntake Total 400 ml 730 ml 550 ml OutputOutput Total 200 ml 300 ml 600 ml BalanceBalance 200 ml 430 ml -50 ml Medications Medications Current Medications IV Flush (NS 3 ml) 3 ml PER PROTOCOL IV ; Start 07/13/18 at 06:30 Ondansetron HCl (Zofran Inj) 4 mg Q6H PRN IV NAUSEA AND/OR VOMITING; Start 07/13/18 at 06:30 Acetaminophen (Tylenol Tab) 650 mg Q6H PRN PO PAIN LEVEL 1-3 OR FEVER Last administered on 07/14/18at 20:22; Admin Dose 650 MG; Start 07/13/18 at 06:30 Heparin Sodium (Porcine) (Heparin (5000 Units/1ml)) 5,000 unit Q12 SC Last administered on 07/15/18at 09:37; Admin Dose 5,000 UNIT; Start 07/13/18 at 09:00 Vancomycin HCl (Vanco Iv Per Pharmacy) VANCOMYCIN PER PHARMACY PER PROTOCOL XX ; Start 07/13/18 at 07:00 Vancomycin HCl 1.5 gm/Sodium Chloride 250 ml @ 83.333 mls/ hr Q12H IVPB Last administered on 07/15/18at 00:59; Admin Dose 83.333 MLS/HR; Start 07/13/18 at 13:00 Calcium Carbonate (Tums) 500 mg PC MEALS PO Last administered on 07/15/18at 09:36; Admin Dose 500 MG; Start 07/13/18 at 13:00 Methadone HCl (Methadone) 50 mg DAILY PO Last administered on 07/15/18at 09:36; Admin Dose 50 MG; Start 07/14/18 at 09:00 Levofloxacin (Levaquin) 500 mg DAILY@06 PO Last administered on 07/15/18at 05:27; Admin Dose 500 MG; Start 07/15/18 at 06:00 Date/Time of Note Date/Time of Note DATE: 07/15/18 TIME: 13:42 HIRAM TRIANA NP Jul 15, 2018 13:43
[2018-07-15 14:10] VITALS: BP 117/69; PULSE 75; RESP 18
--- NOTE | 2018-07-15 17:26 | NUR ---
RN NOTES Patient was discharge in stable condition, denies any pain but still noted with redness in right lower extremity. Patient still needs to continue with antibiotic x 7 days. Discharge instructions given and patient verbalized understanding. Vital signs taken prior to dc and result is as follows BP 119/70, pulse 68, respiration 18, temperature 97.2, O 2 saturation 99% on room air. Midline was removed prior to discharge, no bleeding noted., tip intact. Patient refused to use wheelchair. Discharge in stable condition, alert and oriented.
--- NOTE | 2018-07-15 17:27 | NUR ---
VANCO PER RX PROTOCOL: DAY # 3 S/O: AFEB VANCO TR = 15.4 A/P: PT CLEARING VANCO ADEQUATELY, CONTINUE VANCO 1.5GM Q 12HR. WILL CONTINUE TO FOLLOW.
== END 2018-07-15 17:20 | disposition home or self-care (01) | DRG 603 ==
LOC: E/R 02:13 → PP2 04:25
PROVIDERS: ADMIT Internal Medicine; ATTEND Internal Medicine
DX: L03.115 Cellulitis of right lower limb (principal); D64.9 Anemia, unspecified; Z72.0 Tobacco use; F11.90 Opioid use, unspecified, uncomplicated
CPT/HCPCS: 36415; 73590; 80048; 80053; 80061; 80202; 81003; 82550; 82728; 83036; 83540; 83605; 83735; 84100; 84153; 84154; 85025; 85610; 85651; 85730; 86140; 87040; 87086; 90686; 93971; 96374; 96375; J0692; J1644; J2543; J3370; J7030; J7050